=== PATIENT | female | born 1965 | race Caucasian/White ===

== ENCOUNTER 2018-09-26 10:20 | Emergency (ER) | payer OTHER ==
[~2018-09-26] VITALS: Ht 167.6 cm; Wt 113.4 kg
[2018-09-26] MEDS ORDERED: METFORMIN HCL1000 MG PO (11:07)
[2018-09-26] MEDS ORDERED: LIPITOR10 MG PO (11:08)
[2018-09-26] MEDS ORDERED: INVOKANA100 MG PO (11:08)
[2018-09-26] MEDS ORDERED: METOPROLOL SUCC25 MG PO (11:08)
[2018-09-26] MEDS ORDERED: VOLTAREN-XR100 MG PO (11:09)
[2018-09-26] MEDS ORDERED: ALDACTONE50 MG PO (11:09)
[2018-09-26] MEDS ORDERED: ASPIR-TRIN325 MG PO (11:09)
[2018-09-26] MEDS ORDERED: LANTUS100 UNITS/ SUB-Q (11:10)
[2018-09-26] MEDS ORDERED: APIDRA100 UNIT/2 SUB-Q (11:10)
[2018-09-26] MEDS ORDERED: FENOFIBRATE40 MG PO (11:10)
[2018-09-26] MEDS ORDERED: VICTOZA 2-0.6 MG/0.1 SUB-Q (11:11)
[2018-09-26] MEDS ORDERED: ONDANSETRON ODT8 MG PO (16:54)
[2018-09-26] MEDS ORDERED: PROMETHAZINE HC25 M1 PO (16:54)
== END 2018-09-26 17:10 | disposition home or self-care (01) ==
LOC: ED 10:20
DX: K52.9 Noninfective gastroenteritis and colitis, unspecified (principal); I10 Essential (primary) hypertension; E11.9 Type 2 diabetes mellitus without complications; Z90.49 Acquired absence of other specified parts of digestive tract; Z88.0 Allergy status to penicillin; Z88.2 Allergy status to sulfonamides; Z88.5 Allergy status to narcotic agent; Z91.041 Radiographic dye allergy status; Z79.4 Long term (current) use of insulin; Z79.82 Long term (current) use of aspirin; Z79.899 Other long term (current) drug therapy
CPT/HCPCS: 74176; 80053; 81001; 83690; 85025; 96361; 96374; 96375; 96376; 99284-25; J1170; J2405; J2550; J7030